=== PATIENT | female | born 1955 | race Hispanic/Latino ===

== ENCOUNTER 2019-06-04 13:57 | Observation (INO) | payer OTHER ==
[~2019-06-04] VITALS: Ht 152.4 cm; Wt 60.8 kg
[2019-06-04] MEDS ORDERED: MORPHINE SULFATE 2 MG/ML 1ML SYG ONE (14:41)
[2019-06-04] MEDS ORDERED: METHYLPREDNISOLONE SOD SUCC 125MG/2ML VIAL ONE (14:41)
[2019-06-04] MEDS ORDERED: ONDANSETRON HCL 4 MG/2 ML VIAL ONE (14:42)
[2019-06-04 14:52] LABS: APPEARANCE,URINE Clear (CLEAR); BILIRUBIN,URINE Negative (NEGATIVE); COLOR,URINE Yellow (YELLOW); GLUCOSE, URINE (UA) Negative (NEGATIVE); KETONES,URINE Trace mg/dL (NEGATIVE); LEUKOCYTE ESTERASE ,URINE Negative (NEGATIVE); NITRATE,URINE Negative (NEGATIVE); OCCULT BLOOD,URINE Negative (NEGATIVE); PH,URINE 6.5 (5.0-8.0); PROTEIN,URINE POS 1+ mg/dL (NEGATIVE); UROBILINOGEN,URINE 0.2 mg/dL (0.2-1.0)
[2019-06-04 14:58] LABS: BASOPHILS % (AUTO) 0.2 % (0.0-5.0); EOSINOPHILS % (AUTO) 1.1 % (0.0-8.0); HEMATOCRIT 40.7 % (36-48); LYMPHOCYTES % (AUTO) 16.9 % (21.0-51.0); MEAN CORPUSCULAR HGB CONC 34.4 g/dL (32.0-36.0); MEAN CORPUSCULAR VOLUME 90.2 fL (79-99); NEUTROPHILS % (AUTO) 76.4 % (40.0-77.0); PLATELET COUNT (AUTO) 249 K/uL (130-400); RED BLOOD CELL COUNT(AUTO) 4.51 MIL/uL (4.00-5.50); RED CELL DISTRIBUTION WIDTH 11.8 % (11.0-15.5); WHITE BLOOD COUNT (AUTO) 9.8 K/uL (4.8-10.8)
[2019-06-04 15:02] LABS: POTASSIUM 4.5 mmol/L (3.5-5.1)
[2019-06-04 15:07] LABS: ALBUMIN 3.9 g/dL (3.5-5.0); BILIRUBIN,TOTAL 1.1 mg/dL (0.2-1.0); TOTAL PROTEIN, SERUM 7.8 g/dL (6.0-8.3)
[2019-06-04 15:26] LABS: BACTERIA,URINE Few /HPF (None Seen); RBC,URINE 0-1 /HPF (0-1); SQUAMOUS EPITHELIAL CELL,UR Rare /HPF (0-2); WBC,URINE 0-1 /HPF (0-1)
[2019-06-04] MEDS ORDERED: HYDRALAZINE HCL 20 MG/ML VIAL ONE (18:27)
[2019-06-04] MEDS ORDERED: LACTULOSE 20 GM/30 ML UDCUP PO PRN (18:30)
[2019-06-04] MEDS ORDERED: SODIUM CHLORIDE 0.9% 1000ML 1,000 ML IV SCH (18:30)
[2019-06-04] MEDS ORDERED: HYDRALAZINE HCL 20 MG/ML VIAL IV PRN (18:30)
[2019-06-04] MEDS ORDERED: ONDANSETRON HCL 4 MG/2 ML VIAL IV PRN (18:30)
[2019-06-04] MEDS ORDERED: DIPHENHYDRAMINE HCL 25 MG CAPSULE PO PRN (18:30)
[2019-06-04] MEDS ORDERED: ACETAMINOPHEN 325 MG TAB PO PRN ×2 (18:30)
[2019-06-04] MEDS ORDERED: MORPHINE SULFATE 4 MG/1ML SYG IVP PRN (19:30)
[2019-06-04 20:16] VITALS: BP 145/84
[2019-06-04] MEDS ORDERED: FAMOTIDINE 20MG TAB 20 MG TAB PO SCH (21:00)
[2019-06-04] MEDS: FAMOTIDINE 20MG TAB 20 MG TAB PO SCH (21:14)
[2019-06-04 23:37] VITALS: BP 123/76
[2019-06-05 03:43] VITALS: BP 117/74
[2019-06-05 05:28] LABS: BASOPHILS % (AUTO) 0.1 % (0.0-5.0); HEMATOCRIT 38.1 % (36-48); LYMPHOCYTES % (AUTO) 11.2 % (21.0-51.0); MEAN CORPUSCULAR HEMOGLOBIN 30.2 pg (27.0-33.0); MEAN CORPUSCULAR HGB CONC 34.1 g/dL (32.0-36.0); MEAN CORPUSCULAR VOLUME 88.4 fL (79-99); MONOCYTES % (AUTO) 4.1 % (3.0-13.0); NEUTROPHILS % (AUTO) 84.1 % (40.0-77.0); PLATELET COUNT (AUTO) 253 K/uL (130-400); RED BLOOD CELL COUNT(AUTO) 4.31 MIL/uL (4.00-5.50); RED CELL DISTRIBUTION WIDTH 12.3 % (11.0-15.5); WHITE BLOOD COUNT (AUTO) 9.3 K/uL (4.8-10.8)
[2019-06-05 05:42] LABS: CREATININE 0.9 mg/dL (0.5-1.5); POTASSIUM 4.6 mmol/L (3.5-5.1)
[2019-06-05] MEDS: FAMOTIDINE 20MG TAB 20 MG TAB PO SCH (08:00)
[2019-06-05] MEDS: ACETAMINOPHEN 325 MG TAB PO PRN ×2 (08:00→13:48)
[2019-06-05 09:03] VITALS: BP 116/68
[2019-06-05 11:41] VITALS: BP 129/79
[2019-06-05] MEDS ORDERED: DIPH25 PO (14:23)
--- NOTE | 2019-06-05 16:13 | NUR ---
CM NOTE PATIENT TO DISCHARGE HOME TODAY, PENDING TO LEAVE. NO NEEDS VERBALIZED BY PRIMARY NURSE, DHRUV ISBELL.
== END 2019-06-05 16:30 | disposition home or self-care (01) ==
LOC: EDH 13:57 → EDHIP 17:33 → 3AH 18:36
PROVIDERS: ADMIT Hospitalist; ATTEND Hospitalist
DX: T63.441A Toxic effect of venom of bees, accidental (unintentional), initial encounter (principal); R51 Headache; Z90.710 Acquired absence of both cervix and uterus; Y92.89 Other specified places as the place of occurrence of the external cause
CPT/HCPCS: 36415 ×2; 80048; 80053; 81001; 82550; 83605 ×2; 84484; 85025 ×2; 93005; 99284; G0378 ×8; J0360; J2270; J2405; J2930; Q0163

== ENCOUNTER → 2021-07-02 | Outpatient (CLI) | payer OTHER ==
[~2021-07-02] MED LIST: DIPH25 PO
== END | disposition home or self-care (01) ==
LOC: RAH 13:57
PROVIDERS: ATTEND Internal Medicine Cardiovascular Disease
DX: I08.0 Rheumatic disorders of both mitral and aortic valves (principal); R00.2 Palpitations; R94.31 Abnormal electrocardiogram [ECG] [EKG]; R01.1 Cardiac murmur, unspecified
CPT/HCPCS: 93306